=== PATIENT | female | born 1935 | race Caucasian/White ===

== ENCOUNTER 2019-11-15 17:44 | Emergency (ER) | payer MEDICARE ==
[~2019-11-15] VITALS: Ht 152.4 cm; Wt 68.2 kg
[2019-11-15] MEDS ORDERED: LIDOcaine Viscous 15ml cup TP ONE (20:00)
[2019-11-15] MEDS ORDERED: traMADol 50MG tablet PO ONE (20:00)
[2019-11-15] MEDS ORDERED: clindamycin 150mg capsule PO ONE (20:00)
[2019-11-15] MEDS ORDERED: acetaminophen 325mg tablet PO ONE (20:00)
[2019-11-15] MEDS ORDERED: ondansetron 4mg rapidly disintigrating tab PO ONE (20:00)
[2019-11-15] MEDS ORDERED: CLIN150C8 PO (20:02)
[2019-11-15] MEDS ORDERED: ACYC-202 PO (20:02)
[2019-11-15] MEDS ORDERED: LIDO30CR23 TOP (20:02)
[2019-11-15 20:30] VITALS: BP 136/88
== END 2019-11-15 20:31 | disposition home or self-care (01) ==
LOC: ER 17:45
DX: B02.9 Zoster without complications (principal); R21 Rash and other nonspecific skin eruption; M06.9 Rheumatoid arthritis, unspecified; Z88.5 Allergy status to narcotic agent; Z88.8 Allergy status to other drugs, medicaments and biological substances; Z79.899 Other long term (current) drug therapy
CPT/HCPCS: 99284